=== PATIENT | male | born 1955 | race Caucasian/White ===

== ENCOUNTER 2024-05-16 06:02 | Emergency (ER) | payer MEDICARE, MEDICAID, SELFPAY ==
--- NOTE | ~2024-05-16 | MR_ITS ---
EXAMINATION: MR CERVICAL SPINE WITHOUT CONTRAST CLINICAL INFORMATION: Numbness in bilateral upper extremities. Known cervical spine fracture. COMPARISON: CT cervical spine 05/16/2024. TECHNIQUE: MRI of the cervical spine was obtained using routine sequences without contrast. FINDINGS: Partial visualization is made of acute fracture is identified on the comparison CT of the cervical spine 05/16/2024. Horizontal fracture of the superior aspect of the C7 vertebral body is present. As visualized better advantage on the comparison CT, fractures extend through the bilateral posterior elements of C6. T2 hyperintensity is present in the interspinous region at C5-C6 suspicious for a high-grade ligamentous sprain. T2 hyperintensity is noted in the expected location of the interspinous ligament at C5-C6 and the interspinous ligament is not visualized this level suspicious for high grade ligamentous sprain. The C7 and C6 fractures noted above are associated with 5 mm traumatic appearing cyst anterior subluxation of the superior spine relative to the inferior spine across the plane of the fractures. As noted on the comparison study, osseous bridging is present elsewhere throughout the cervical spine including osseous bridging in the region of the anterior longitudinal ligament and left and right facet joints. Complete effacement of the adjacent thecal sac CSF space is present at the level of the anterolisthesis. A dorsal epidural fluid collection measuring 7 mm in AP extent is present at this level and extends between the levels of the mid body of C6 and the superior margin of T1. Fluid in this region is characterized by intermediate T1 and high T2-weighted signal intensity and is suspicious for hyperacute hemorrhage (oxyhemoglobin). The fluid collection exerts mass effect upon the adjacent thecal sac. The ventral margin of the spinal cord at this level abuts the superior superior margin of the plane of the fracture through the C7 vertebral body. Findings suspicious for mild T2 hyperintensity in the adjacent spinal cord are noted. Vague low T2 and low GRE-weighted signal intensity is noted centrally within the spinal cord at this same level and may represent areas of hemorrhagic contusion. C5-C6: Mild central and mild bilateral foraminal stenoses secondary to a mild posterior broad-based chronic appearing disc-osteophyte complex. Trace prevertebral fluid is present between the levels of C2 and the least the level of T3. Susceptibility artifact emanates from the posterior elements and peduncles at the level of T5 and extends along the posterior elements of T7 beyond the inferior margin of the field of view. MR/MR cervical spine wo con IMPRESSION: *Unstable horizontal fracture through the superior aspect of the C7 vertebral body and extending into the left and right C6 posterior elements and C6 spinous process as visualized better advantage on the comparison CT of 05/16/2024. *Traumatic subluxation. Unchanged 5 mm subluxation of the cervical spine across the fracture plane noted above. The superior aspect of the cervical spine is subluxed 5 mm relative to the inferior aspect of the cervical spine across the C6-C7 fractures. *Epidural hematoma along the dorsal aspect of the spinal cord measuring 7 mm in AP extent between the levels of C6-T1 *The traumatic subluxation in combination with the epidural hematoma results in moderate-marked central canal stenosis with complete effacement of the adjacent thecal sac CSF space at C6-C7. No AP deformation of the adjacent spinal cord. Mild edematous signal abnormality is present in the spinal cord at C6-C7 suspicious for spinal cord contusion. Vague low T2 weighted signal abnormality is present in the same region and may represent small areas of hemorrhagic contusion. *High-grade ligamentous sprains of the C5-C6 interspinous and supraspinous ligaments. *Diffuse bilateral facet joint ankylosis and osseous bridging of the anterior longitudinal ligament within the cervical spine. 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 *Partial visualization of posterior spinal instrumentation T3-T6 extending inferiorly beyond the imaged field of view. This result was discussed with Dr. Charli MANCIA by telephone at 05/16/2024 4:33PM EST who indicated that transfers underway to a trauma center and it was ascertained that the content and urgency of the report was understood at the time of direct communication. Electronically signed by: Aleks Em MD 05/16/2024 04:41 PM EST
--- NOTE | ~2024-05-16 | CT_ITS ---
EXAMINATION: CT CERVICAL SPINE WITHOUT CONTRAST CLINICAL INFORMATION: Known cervical spine fracture. Worsening pain. Upper extremity paresthesias. COMPARISON: None available. TECHNIQUE: Continues axial CT images of the cervical spine were obtained without contrast. Sagittal and coronal reformats were provided and reviewed. This CT examination was performed using dose optimization techniques as appropriate, variously including the following: *Automated exposure control *Adjustment of mA and/or kV according to patient size (this includes techniques or standardized protocols for targeted exams where dose is matched to indication/reason for exam; i.e. extremities or head) *Use of iterative reconstruction technique DLP: 499 mGy-cm FINDINGS: Oblique fracture through the superior endplate of C7 with anterior displacement of the superior endplate measuring up to 0.7 cm in AP dimension. Associated oblique fracture lines extending through the posterior elements of C6 dissecting the facet joints. The fracture aspect of the facets appear perched anteriorly on the superior aspect of the C7 facet. Evaluation of soft tissues is limited, however, there is resultant stenosis of the central canal as well as bilateral neural foramen. Diffuse bridging osteophytes throughout the visualized cervical and thoracic spine. No loss of vertebral body height. The intervertebral disc heights are preserved. Diffuse osseous bridging of the bilateral facets. Severe degenerative changes at the atlantoaxial articulation. No concerning lytic or osseous lesion. No soft tissue mass or fluid collection. The thyroid is unremarkable. The lung apices are clear. CT/CT cervical spine wo IV con IMPRESSION: 1. Oblique fracture through the superior endplate of C7 with anterior displacement of the superior endplate measuring up to 0.7 cm in AP dimension. Associated oblique fracture lines extending through the posterior elements of C6 dissecting the facet joints. The fracture aspect of the facets appear perched anteriorly on the superior aspect of the C7 facet. Evaluation of soft tissues is limited, however, there is resultant stenosis of the central canal as well as bilateral neural foramen. 2. Diffuse bridging osteophytes throughout the visualized cervical and thoracic spine. Fleischner guidelines were followed. This critical result was discussed with Dr. Hamilton at 9:38 AM on 05/16/2024 and it was ascertained that the content and urgency of the report was understood at the time of direct communication. Electronically signed by: Ran Rhodes MD 05/16/2024 09:45 AM [facility]
[2024-05-16 06:11] VITALS: BP 187/90; PULSE 75; O2SAT 91
[2024-05-16 06:25] VITALS: BP 194/70; PULSE 78; RESP 18; TEMP 36.5; O2SAT 97; BMI 42.3
[2024-05-16] MEDS: oxyCODONE HCl Immed Release 5 MG TABLET 10 MG PO (07:39)
--- NOTE | 2024-05-16 07:39 | ED_ITS ---
HPI - Neck Pain/Injury General Chief Complaint: Neck Pain/Injury Stated Complaint: neck pain;neck fx last week Time Seen by Provider: 05/16/24 06:54 Source: patient and old records reviewed Mode of arrival: ambulatory Limitations: no limitations History of Present Illness ED Provider: MARY CARDONA Narrative: 69 yo male with PMH of HTN reports he fell 10 days ago (05/07) and was treated at [facility] for cervical spine fractures C7 vert body fracture and fx of articulating process between C-C7 he is wearing [place] collar and following up with NSGY in 2 weeks. He was sent to rehab at [facility] and was regularly taking oxycodone. He was discharged to home yesterday and he could not fill his oxycodone so he didn't sleep well last night and had severe pain. He denies numbness, weakness, loss of control of bowel or bladder to me. He does report bilateral shoulder pain since the accident but this is not new. I asked him over and over if he had neuro deficits that were no and he states no. not on thinners MD complaint: neck pain and neck injury Onset (ago): day(s) () Place: home Radiation: right lateral and left lateral Severity: moderate Quality: dull and throbbing Duration: constant Relieving factors: immobilization Exacerbating factors: other (any movements but also he has pain at rest) Context: fall Associated symptoms: none Treatments prior to arrival: cervical collar and other (work up with NSGY throught [facility]) Related Data Allergies Allergy/AdvReac Type Severity Reaction Status Date / Time No Known Allergies Allergy Verified 05/16/24 06:28 [No Known Allergies*] Review of Systems Review of Systems: Constitutional : No Weight loss, No Fever, No Chills, ENT/Mouth : No Hearing loss, No Ear Pain, No Nasal Congestion, No Sinus Pain, No Hoarseness, No sore throat, No Rhinorrhea, No Swallowing Difficulty Cardiovascular : No Chest Pain, No SOB Respiratory : No Cough, No Dyspnea Gastrointestinal : No Nausea, No Vomiting, No Diarrhea, No abdominal Pain, No Hematochezia, No Melena Genitourinary : No Dysuria, No Urinary Frequency, No Hematuria, No Urinary Incontinence, Musculoskeletal : positive neck pain Skin : No Skin Lesions, No rash Neuro : No Weakness, No Numbness, No Paresthesias, no loss of bowel or bladder incontinence, no saddle anesthesia all other systems reviewed and are negative [facility] Past Medical History Attestation statement: The following information was validated with the patient. Source: old records reviewed Medical History (Updated 05/16/24 @ 14:52 by Cheryle Hamilton DO) Cervical spine fracture HTN (hypertension) Social History Social History (Updated 05/16/24 @ 07:43 by Cheryle Hamilton DO) Patient Tobacco Use Status: Tobacco use Unknown Advance Directives: No Advance Directives Information Provided: Yes Physical Exam 2 Vital Signs: Vital Signs: Last Vital Signs Temp 97.7 F 05/16/24 06:25 Pulse 70 05/16/24 13:32 Resp 16 05/16/24 13:32 BP 189/74 H 05/16/24 13:32 Pulse Ox 95 05/16/24 13:32 O2 Del Method Room Air 05/16/24 13:32 BMI result Body Mass Index 42.3 Appearance: Alert. Oriented X3. No acute distress. Eyes: Pupils equal, round and reactive to light. ENT: Pharynx normal. no difficulty swallowing Neck: appropriately fitting collar in place CVS: Normal heart rate and rhythm. Pulses normal. Respiratory: No respiratory distress. Breath sounds normal. Abdomen: Soft and non-tender. Skin: Skin warm and dry. Normal skin color. Extremities: No lower extremity edema. Neuro: Oriented X 3. No motor deficit. No sensory deficit. 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 Hamilton NPO needs surgery has not eaten since last night Reevaluation #3: no numbness weakness on recheck again 334pm Medications Administered Generic Name Dose Route Start Last Admin Trade Name Freq PRN Reason Stop Dose Admin Oxycodone HCl 5 mg 05/16/24 11:53 05/16/24 12:50 Oxycodone Hcl Immed Release 5 Mg Tablet PO 5 mg Q6H PRN Administration Pain, Moderate(Pain Scale 4-6) Discontinued Medications Generic Name Dose Route Start Last Admin Trade Name Kushal PRN Reason Stop Dose Admin Oxycodone HCl 10 mg 05/16/24 07:19 05/16/24 07:39 Oxycodone Hcl Immed Release 5 Mg Tablet PO 05/16/24 07:20 10 mg ONCE ONE Administration Medical Decision Making Medical Decision Making MDM Narrative: 69 yo male with PMH of HTN reports he fell 10 days ago known cervical spine fractures who denied numbness, tingling weakness to me. HE HAS NOW STATED AFTER 30 MIN POST INTERVIEW THAT HE IN FACT FEELS TINGLING ON THE LATERAL ASPECT OF ARMS AND INTO LATERAL FINGERS. HE IS 5/5 IN UE AND WHEN I TOUCH HIM HE STATES HE CAN FEEL IT. HE HAS NO CLONUS OR HYPERREFLEXIA. His story has changed at this ti me oral oxycodone ordered and CT cspine - records from [facility] requested. He has no come to [facility] and now here for his neck issues. I am ordering CT cspine and will discuss with NSGY at [facility] - requested records to see if neuro symptoms old or new as well. He has intermittent symptoms which are new and concerning. 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 Oblique fracture through the superior endplate of C7 with anterior displacement of the superior endplate measuring up to 0.7 cm in AP dimension. Associated oblique fracture lines extending through the posterior elements of C6 dissecting the facet joints. The fracture aspect of the facets appear perched anteriorly on the superior aspect of the C7 facet. Evaluation of soft tissues is limited, however, there is resultant stenosis of the central canal as well as bilateral neural foramen. 2. Diffuse bridging osteophytes throughout the visualized cervical and thoracic spine. Radiology Impression Discussion of test interpretation with radiology: I discussed test interpretation with the radiologist and I have reviewed the radiologist's reading. Radiologist Impression: call from Radiology 936am fracture C7 goes to posterior element of C6 facets are perched ant displaced 1cm there is narrowing of central canal Independent Historian Clinical information obtained from an independent historian. History obtained from or confirmed by: EMS External Record Review External record reviewed: Outpatient record Critical Care Time Critical Care Time Critical Care Time: Yes Total Critical Care Time: 45 Attestation: review of records, IV morphine with relief of pain, consult, repeat neuro Discharge Plan Discharge Clinical Impression: Cervical spine fracture Qualifiers: Encounter type: subsequent encounter Cervical vertebra fracture level: C7 Fracture type: closed Fracture morphology: unspecified fracture morphology Fracture alignment: displaced Fracture healing: with routine healing Qualified Code(s): S12.600D - Unspecified displaced fracture of seventh cervical vertebra, subsequent encounter for fracture with routine healing Patient Disposition: [facility] Transfer Details: [facility] Referrals: Brenda Lraa MD [Primary Care Provider] - Print Language: Kiswahili
[2024-05-16 10:45] VITALS: BP 183/77; PULSE 80; RESP 16; O2SAT 98
--- NOTE | 2024-05-16 10:55 | PC.NURSE ---
MRI screening form completed with patient, sent to MRI
[2024-05-16] MEDS: oxyCODONE HCl Immed Release 5 MG TABLET PO (12:50)
[2024-05-16 13:32] VITALS: BP 189/74; PULSE 70; RESP 16; O2SAT 95
--- NOTE | 2024-05-16 14:19 | PC.NURSE ---
Assumed care of this patient 1300, patient continues to rest quietly on stretcher, waiting for MRI results.
--- NOTE | 2024-05-16 15:21 | PC.NURSE ---
MRI still not resulted, scanned at 0955 this am, ED US Mel to call ginny mejía to inquire about delay.
[2024-05-16] MEDS: Morphine Sulfate 4 MG/ML CARTRIDGE IVPUSH (15:50)
[2024-05-16 15:51] VITALS: BP 195/79; PULSE 97; RESP 16; O2SAT 99
[2024-05-16 16:09] VITALS: BP 195/79; PULSE 97; RESP 16; TEMP 36.6; O2SAT 99
[2024-05-16 16:10] LABS: MANUAL DIFF FLAG NO
[2024-05-16 16:11] LABS: Basophils Percent Auto 0.3 % (0-2); Eosinophils Absolute Auto 0.3 X10*3/uL (0.0-0.4); Eosinophils Percent Auto 3.7 % (0-4); Hemoglobin 17.5 g/dl (14.0-18.0); Imm Gran Abs Auto 0.03 X10*3/uL (0.00-0.03); Imm Gran Pct Auto 0.4 % (0.0-0.4); Lymphocytes Absolute Auto 0.6 X10*3/uL (1.2-4.9); Lymphocytes Percent Auto 7.8 % (20-40); Mean Corpuscular HGB Conc 33.7 g/dl (31.0-36.0); Mean Corpuscular Hemoglobin 30.2 pg (27.0-33.0); Mean Corpuscular Volume 89.7 fL (80.0-98.0); Mean Platelet Volume 8.8 fL (9.4-12.4); Monocytes Absolute Auto 0.8 X10*3/uL (0.1-1.2); Monocytes Percent Auto 10.6 % (2-11); Neutrophils Absolute Auto 6.1 x10*3/uL (2.0-8.3); Neutrophils Percent Auto 77.2 % (45-73); Platelet Count 281 X10*3/uL (160-400); White Blood Count 7.9 X10*3/uL (4.8-10.8)
--- NOTE | 2024-05-16 16:11 | PC.NURSE ---
RN to RN report given to Magnolia ZIEGLER at [facility], all questions answered, patient to be transferred once EMS arrives, resting quietly on stretcher at this time, [place] collar in place.
[2024-05-16 16:19] LABS: Prothrombin Time 11.7 SEC (10.9-12.4)
[2024-05-16 16:23] LABS: Anion Gap 16 (12-20); Blood Urea Nitrogen 11 mg/dL (9-16); Calcium 9.5 mg/dL (8.4-10.2); Carbon Dioxide 25 mmol/L (22-29); Chloride 101 mmol/L (96-108); Creatinine Clr Calc Pharmacy 103.8; Estimated Glomerular Filt Rate > 60; Glucose Random 89 mg/dL (60-115); Potassium 4.1 mmol/L (3.3-5.1); Sodium 138 mmol/L (135-145)
== END 2024-05-16 16:36 | disposition short-term general hospital (02) ==
PROVIDERS: Emergency Provider Emergency Medicine; PCP Internal Medicine
DX: S12.600A Unspecified displaced fracture of seventh cervical vertebra, initial encounter for closed fracture (principal); M54.2 Cervicalgia; R51.9 Headache, unspecified; W19.XXXA Unspecified fall, initial encounter; Y93.89 Activity, other specified; Y92.89 Other specified places as the place of occurrence of the external cause; Y99.8 Other external cause status; Z79.899 Other long term (current) drug therapy
CPT/HCPCS: 36415; 72125; 72141; 80048; 85025; 85610; 96374; 99285; J2270